=== PATIENT | female | born 1940 | race Caucasian/White ===

== ENCOUNTER → 2020-12-23 | Outpatient (CLI) | payer MEDICARE ==
[~2020-12-23] MED LIST: ALBU6.7H8 INH; ASPI-963 PO; ATOR-2 PO; CARV6.2512 PO; CHOL10003 PO; HYDR25TA6 PO; LEVO75TA5 PO; LOSA25TA25 PO; UMEC1DIS INH
[2020-12-23 14:56] LABS: BASOPHILS % (AUTO) 2 % (0-1); EOSINOPHILS % (AUTO) 4 % (1-7); LYMPHOCYTES % (AUTO) 19 % (22-44); MEAN CORPUSCULAR HEMOGLOBIN 34.5 pg (27.0-34.8); MEAN CORPUSCULAR HGB CONC 33.9 g/dL (32.4-35.8); MEAN PLATELET VOLUME 9.3 fL (7.4-10.4); MONOCYTES % (AUTO) 8 % (2-9); NEUTROPHILS % (AUTO) 67 % (42-75); PLATELET COUNT 329 x10^3/uL (130-400); RED BLOOD COUNT 4.39 x10^6/uL (3.82-5.3); RED CELL DISTRIBUTION WIDTH 13.3 % (9.6-15.2)
[2020-12-23 15:06] LABS: MICROSCOPIC AUTO
[2020-12-23 15:07] LABS: INTERNATIONAL NORMALIZED RATIO 0.97 (0.93-1.1); PROTHROMBIN TIME 10.4 Seconds (9.6-11.5)
[2020-12-23 15:12] LABS: ALBUMIN 3.8 g/dL (3.4-5.0); ANION GAP 6 mmol/L (5-15); CALCIUM 8.9 mg/dL (8.5-10.1); CHLORIDE 107 mmol/L (98-107)
[2020-12-23 15:17] LABS: ALANINE AMINOTRANSFERASE 26 U/L (12-78); ALKALINE PHOSPHATASE 77 U/L (45-117); BILIRUBIN,TOTAL 0.8 mg/dL (0.2-1.0); CREATININE 0.87 mg/dL (0.55-1.02); TOTAL PROTEIN 7.6 g/dL (6.4-8.2)
== END | disposition home or self-care (01) ==
LOC: STAR 12:59
PROVIDERS: ATTEND Neurological Surgery
DX: Z01.818 Encounter for other preprocedural examination (principal); Z01.812 Encounter for preprocedural laboratory examination; Z01.811 Encounter for preprocedural respiratory examination; Z01.810 Encounter for preprocedural cardiovascular examination; R94.31 Abnormal electrocardiogram [ECG] [EKG]; R82.90 Unspecified abnormal findings in urine; R79.1 Abnormal coagulation profile; M48.061 Spinal stenosis, lumbar region without neurogenic claudication; M47.896 Other spondylosis, lumbar region; M25.78 Osteophyte, vertebrae; M41.86 Other forms of scoliosis, lumbar region; M51.35 Other intervertebral disc degeneration, thoracolumbar region
CPT/HCPCS: 36415; 71046; 72110; 80053; 81001; 85025; 85610; 85730; 87086; 93005

== ENCOUNTER 2021-01-07 07:39 | Observation (INO) | payer MEDICARE, OTHER ==
[2020-12-23 14:17] VITALS: BP 133/87
[2021-01-06] MEDS: BUDESONIDE 0.5 MG/2 ML INHA NPPB SCH (20:15)
[~2021-01-07] VITALS: Ht 165.1 cm; Wt 92.0 kg
[~2021-01-07 07:39] MED LIST changes: +BUPIVACAINE 0.25% ONE; +BUPIVACAINE/PF 0.5% ONE; +EPINEPHRINE 1 MG/ML, 1ML ONE; +GENTAMICIN 80 MG/2 ML ONE; +VANCOMYCIN 1,000 MG ONE
[2021-01-07] MEDS ORDERED: CHLORHEXIDINE 15 ML UDC PO ONE (08:00)
[2021-01-07] MEDS ORDERED: LACTATED RINGERS 1,000 ML IV SCH (08:00)
[2021-01-07] MEDS ORDERED: FENTANYL PF 250 MCG/5ML ONE (08:09)
[2021-01-07] MEDS ORDERED: ROCURONIUM 10 MG/ML,10ML ONE (08:51)
[2021-01-07] MEDS ORDERED: ACETAMINOPHEN 325 MG TABLET PO PRN (09:00)
[2021-01-07] MEDS ORDERED: PROMETHAZINE 25 MG/ML, 1ML IVPush PRN (09:00)
[2021-01-07] MEDS ORDERED: morphine SULFATE 10 MG/ML, 1ML IVPush PRN ×2 (09:00→11:00)
[2021-01-07] MEDS ORDERED: ONDANSETRON 2MG/ML, 2ML IVPush PRN ×2 (09:00→11:00)
[2021-01-07] MEDS ORDERED: FENTANYL PF 100 MCG/2ML IV PRN (09:00)
[2021-01-07] MEDS ORDERED: DIAZEPAM 5 MG/ML, 2ML IVPush PRN (09:00)
[2021-01-07] MEDS ORDERED: ALBUTEROL/IPRATROPIUM 2.5MG/0.5MG, 3 ML NPPB PRN (09:00)
[2021-01-07] MEDS ORDERED: HYDROmorphone 1 MG/ML, 1ML INJ IVPush PRN (09:00)
[2021-01-07] MEDS ORDERED: LABETALOL 5MG/ML, 20ML IV PRN (09:00)
[2021-01-07] MEDS ORDERED: METHOCARBAMOL 1,000 MG in DEXTROSE 5% 100 ML IV PRN (09:00)
[2021-01-07] MEDS ORDERED: hydrALAzine 20 MG/ML, 1ML IV PRN (09:00)
[2021-01-07] MEDS ORDERED: OXYcodone 5 MG/5 ML ORAL.SOL UDC PO PRN (09:00)
[2021-01-07] MEDS ORDERED: DEXAMETHASONE 4 MG/ML, 1ML ONE ×2 (09:03)
[2021-01-07] MEDS ORDERED: CEFAZOLIN 1,000 MG ONE ×2 (09:04)
[2021-01-07] MEDS ORDERED: PROPOFOL 10 MG/ML, 20ML ONE (09:08)
[2021-01-07] MEDS ORDERED: ONDANSETRON 2MG/ML, 2ML ONE (09:09)
[2021-01-07] MEDS ORDERED: SUCCINYLCHOLINE 20 MG/ML, 10ML ONE (09:09)
[2021-01-07] MEDS ORDERED: EPHEDRINE 50 MG/ML, 1ML ONE (09:25)
[2021-01-07] MEDS ORDERED: BUPIVACAINE/PF-EPI 0.5% 1:200K INFIL ONE (09:31)
[2021-01-07] MEDS ORDERED: VANCOMYCIN 1,000 MG IM ONE (09:32)
[2021-01-07] MEDS ORDERED: FENTANYL PF 100 MCG/2ML ONE (10:07)
[2021-01-07] MEDS ORDERED: BUPIVACAINE/PF 0.25% EPIDPUSH ONE (10:09)
[2021-01-07] MEDS ORDERED: FENTANYL PF 100 MCG/2ML EPIDPUSH ONE (10:10)
[2021-01-07] MEDS ORDERED: CYCLOBENZAPRINE 10 MG TABLET PO PRN (11:00)
[2021-01-07] MEDS ORDERED: ALBUTEROL HFA 90 MCG/SPRAY INH PRN (11:00)
[2021-01-07] MEDS ORDERED: MAGNESIUM HYDROXIDE 8%, 30ML UDC PO PRN (11:00)
[2021-01-07] MEDS ORDERED: PHARMACY MAY ADJ FOR RENAL FX MC PRN (11:00)
[2021-01-07] MEDS ORDERED: METHOCARBAMOL 750 MG TABLET PO PRN (11:00)
[2021-01-07] MEDS ORDERED: DIPHENHYDRAMINE 50 MG CAPSULE PO PRN (11:00)
[2021-01-07] MEDS ORDERED: HYDROcodone/APAP 10/325 MG TABLET PO PRN (11:00)
[2021-01-07] MEDS ORDERED: PROMETHAZINE 25 MG/ML, 1ML IM PRN (11:00)
[2021-01-07] MEDS ORDERED: SENNA/DOCUSATE TABLET PO PRN (11:00)
[2021-01-07] MEDS ORDERED: HYDROcodone/APAP 5/325 TABLET PO PRN (11:00)
[2021-01-07] MEDS ORDERED: NS + 20MEQ KCL 1,000 ML IV SCH (11:00)
[2021-01-07] MEDS: OXYcodone/APAP 5/325MG TABLET PO PRN ×3 (17:00→23:57)
[2021-01-07] MEDS: CEFAZOLIN PMX 1GM/50ML 50 ML IVPB SCH (20:05)
[2021-01-07 20:29] VITALS: BP 106/65
[2021-01-07] MEDS: SODIUM CHLORIDE FLUSH 10ML SYR IVF SCH (20:30)
[2021-01-07] MEDS: CARVEDILOL 6.25 MG TABLET PO SCH (20:30)
[2021-01-07] MEDS ORDERED: LOSARTAN 25MG TABLET PO SCH (21:00)
[2021-01-07] MEDS ORDERED: ATORVASTATIN 80 MG TABLET PO SCH (21:00)
[2021-01-08 00:02] VITALS: BP 95/55
[2021-01-08] MEDS: OXYcodone/APAP 5/325MG TABLET PO PRN (04:05)
[2021-01-08] MEDS: CEFAZOLIN PMX 1GM/50ML 50 ML IVPB SCH (04:05)
[2021-01-08 04:38] VITALS: BP 119/83
[2021-01-08] MEDS ORDERED: LEVOTHYROXINE 75 MCG TABLET PO SCH (06:00)
[2021-01-08] MEDS ORDERED: ENOXAPARIN 40 MG/0.4 ML SQ SCH (06:00)
[2021-01-08] MEDS ORDERED: OXYC1TAB14 PO (06:48)
[2021-01-08] MEDS ORDERED: METH-640 PO (06:48)
[2021-01-08] MEDS ORDERED: ALBUTEROL/IPRATROPIUM 2.5MG/0.5MG, 3 ML ONE (06:52)
[2021-01-08] MEDS: BUDESONIDE 0.5 MG/2 ML INHA NPPB SCH (06:54)
[2021-01-08 07:49] VITALS: BP 90/51
[2021-01-08] MEDS: CARVEDILOL 6.25 MG TABLET PO SCH (08:00)
[2021-01-08 09:00] VITALS: BP 97/60
[2021-01-08] MEDS ORDERED: HYDROCHLOROTHIAZIDE 25 MG TABLET PO SCH (09:00)
[2021-01-08] MEDS ORDERED: CHOLECALCIFEROL 1,000 UNIT TABLET PO SCH (09:00)
[2021-01-08] MEDS ORDERED: ALBUTEROL/IPRATROPIUM 2.5MG/0.5MG, 3 ML NEB SCH (09:00)
[2021-01-08] MEDS: SODIUM CHLORIDE FLUSH 10ML SYR IVF SCH (09:00)
[2021-01-08 11:37] VITALS: BP 145/74
== END 2021-01-08 12:08 | disposition home or self-care (01) ==
LOC: OR 07:39 → ORIP 10:39 → 4NE 18:19
PROVIDERS: ADMIT Neurological Surgery; ATTEND Neurological Surgery
DX: M48.062 Spinal stenosis, lumbar region with neurogenic claudication (principal); M54.16 Radiculopathy, lumbar region; J44.9 Chronic obstructive pulmonary disease, unspecified; I10 Essential (primary) hypertension; G43.909 Migraine, unspecified, not intractable, without status migrainosus; Z87.891 Personal history of nicotine dependence; Z88.0 Allergy status to penicillin; Z79.899 Other long term (current) drug therapy; Z86.73 Personal history of transient ischemic attack (TIA), and cerebral infarction without residual deficits
CPT/HCPCS: 63056; 72100; 94640; 95938; 95941; 96365; 96366; 96372; 97162; 97166; G0378; J0171; J0330; J0690; J1100; J1580; J1650; J2405; J2704; J3010; J3370; J3480; J7120; J7626; S0020